=== PATIENT | male | born 2005 | race Caucasian/White ===

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

== ENCOUNTER 2023-12-13 16:48 | Emergency (ER) | payer OTHER ==
[~2023-12-13] VITALS: Ht 180.3 cm; Wt 72.6 kg
[~2023-12-13 16:48] MED LIST: DOXYCYCLINE100 M3 PO
[2023-12-13] MEDS ORDERED: METRONIDAZOLE500 M1 PO (17:38)
[2023-12-13] MEDS ORDERED: CEPHALEXIN500 M1 PO (17:38)
[2023-12-13] MEDS ORDERED: CEPHALEXIN 500 MG CAP PO ONE (17:40)
[2023-12-13] MEDS ORDERED: METRONIDAZOLE 500 MG TAB PO ONE (17:40)
== END 2023-12-13 18:00 | disposition home or self-care (01) ==
LOC: ED 16:48
DX: L05.01 Pilonidal cyst with abscess (principal); Z98.890 Other specified postprocedural states